=== PATIENT | female | born 1985 | race Caucasian/White ===

== ENCOUNTER → 2024-04-10 13:29 | Outpatient (REF) | payer BC, SELFPAY | LOC: PNTC 13:29 | PROVIDERS: ATTENDING PHYSICIAN Obstetrics & Gynecology | DX: O09.819 Supervision of pregnancy resulting from assisted reproductive technology, unspecified trimester (principal) | CPT/HCPCS: 76811 ==

== ENCOUNTER → 2024-05-27 08:45 | Outpatient (REF) | payer BC, SELFPAY | LOC: PNTC 08:45 | PROVIDERS: ATTENDING PHYSICIAN Obstetrics & Gynecology | DX: O09.529 Supervision of elderly multigravida, unspecified trimester (principal); O09.819 Supervision of pregnancy resulting from assisted reproductive technology, unspecified trimester | CPT/HCPCS: 76816 ==

== ENCOUNTER → 2024-07-10 10:45 | Outpatient (REF) | payer BC, SELFPAY | LOC: PNTC 10:45 | PROVIDERS: ATTENDING PHYSICIAN Obstetrics & Gynecology | DX: O09.519 Supervision of elderly primigravida, unspecified trimester (principal); O09.819 Supervision of pregnancy resulting from assisted reproductive technology, unspecified trimester | CPT/HCPCS: 76816 ==

== ENCOUNTER → 2024-07-17 11:29 | Outpatient (REF) | payer BC, SELFPAY | LOC: PNTC 11:29 | PROVIDERS: ATTENDING PHYSICIAN Obstetrics & Gynecology | DX: O09.819 Supervision of pregnancy resulting from assisted reproductive technology, unspecified trimester (principal); O09.519 Supervision of elderly primigravida, unspecified trimester | CPT/HCPCS: 59025; 76815 ==

== ENCOUNTER → 2024-07-24 11:14 | Outpatient (REF) | payer BC, SELFPAY | LOC: PNTC 11:14 | PROVIDERS: ATTENDING PHYSICIAN Obstetrics & Gynecology | DX: O09.819 Supervision of pregnancy resulting from assisted reproductive technology, unspecified trimester (principal); O09.529 Supervision of elderly multigravida, unspecified trimester | CPT/HCPCS: 76815 ==

== ENCOUNTER → 2024-07-31 10:26 | Outpatient (REF) | payer BC, SELFPAY | LOC: PNTC 10:26 | PROVIDERS: ATTENDING PHYSICIAN Obstetrics & Gynecology | DX: O09.819 Supervision of pregnancy resulting from assisted reproductive technology, unspecified trimester (principal); O09.521 Supervision of elderly multigravida, first trimester | CPT/HCPCS: 59025; 76815 ==

== ENCOUNTER → 2024-08-07 09:13 | Outpatient (REF) | payer BC, SELFPAY | LOC: PNTC 09:13 | PROVIDERS: ATTENDING PHYSICIAN Obstetrics & Gynecology | DX: O99.519 Diseases of the respiratory system complicating pregnancy, unspecified trimester (principal); O09.819 Supervision of pregnancy resulting from assisted reproductive technology, unspecified trimester | CPT/HCPCS: 59025; 76816 ==

== ENCOUNTER → 2024-08-14 11:27 | Outpatient (REF) | payer BC, SELFPAY | LOC: PNTC 11:27 | PROVIDERS: ATTENDING PHYSICIAN Obstetrics & Gynecology | DX: O09.519 Supervision of elderly primigravida, unspecified trimester (principal); O09.819 Supervision of pregnancy resulting from assisted reproductive technology, unspecified trimester | CPT/HCPCS: 59025; 76815 ==

== ENCOUNTER → 2024-08-21 09:41 | Outpatient (REF) | payer BC, SELFPAY | LOC: PNTC 09:41 | PROVIDERS: ATTENDING PHYSICIAN Obstetrics & Gynecology | DX: O09.819 Supervision of pregnancy resulting from assisted reproductive technology, unspecified trimester (principal); O09.529 Supervision of elderly multigravida, unspecified trimester | CPT/HCPCS: 59025; 76815 ==

== ENCOUNTER 2024-08-28 20:02 | Inpatient (IN) | payer BC, SELFPAY ==
[2024-08-28 20:10] VITALS: BP 102/77; BMI 29.3
[2024-08-28 21:09] LABS: % Basophils 0.4 % (0-2); % Eosinophils 1.9 % (0-6); % Immature Granulocytes 0.4 % (0-0.5); % Lymphocytes 22.7 % (20.5-51.1); % Neutrophils 64.6 % (42.2-75.2); Absolute Eosinophils 0.2 10^3/uL (0-0.7); Absolute Lymphocytes 1.9 10^3/uL (1.2-3.4); Absolute Monocytes 0.9 10^3/uL (0.1-0.6); Absolute Neutrophils 5.5 10^3/uL (1.4-6.5); Hematocrit 33.4 % (37.0-47.0); Hemoglobin 12.2 g/dL (12.0-16.0); Mean Corp Hgb Conc. 36.5 g/dL (33.0-37.0); Mean Corpuscular Hgb 31.9 pg (27.0-31.0); Mean Corpuscular Volume 87.2 fL (81.0-99.0); Mean Platelet Volume 11.2 fL (7.4-10.4); Nucleated Red Blood Cells % 0 %; Platelet Count 209 10^3/uL (130-400); Red Blood Cell Count 3.83 10^6/uL (4.20-5.40); Red Cell Dist. Width 12.8 % (11.5-14.5); White Blood Cell Count 8.6 10^3/uL (4.8-10.8)
[2024-08-28] MEDS: LR 1000 IV (21:16)
[2024-08-28] MEDS: PITOCIN 30 UNITS/NSS 500 ML IV (21:49)
[2024-08-29] MEDS: LR 1000 IV ×2 (02:02→04:00)
[2024-08-29] MEDS: FENTANYL/BUPIVACAINE 100 EPIDURAL (02:04)
[2024-08-29] MEDS: SUBLIMAZE 100 MCG EPIDURAL (02:04)
[2024-08-29] MEDS: ZOFRAN 4 MG IV (08:05)
[2024-08-29] MEDS: SYNTHROID 88 MCG PO (11:19)
[2024-08-29] MEDS: SENOKOT-S 1 TABLET PO (17:54)
[2024-08-29] MEDS: MOTRIN 600 MG PO (17:54)
[2024-08-29] MEDS: HYDROCORTISONE 2.5% OINTMENT 1 APPLIC TOPICAL (17:56)
[2024-08-30] MEDS: MOTRIN 600 MG PO ×3 (00:01→12:29)
[2024-08-30 03:43] LABS: Hematocrit 29.3 % (37.0-47.0); Hemoglobin 10.7 g/dL (12.0-16.0)
[2024-08-30] MEDS: SYNTHROID 88 MCG PO (06:15)
[2024-08-30] MEDS: SENOKOT-S 1 TABLET PO (08:21)
[2024-08-30] MEDS: PRENATAL PLUS 1 TABLET PO (08:21)
== END 2024-08-30 16:30 | disposition home or self-care (01) | DRG 807 ==
LOC: LDRP 20:02
PROVIDERS: Obstetrics & Gynecology; ADMITTING PHYSICIAN Obstetrics & Gynecology
PROC: 0KQM0ZZ Repair Perineum Muscle, Open Approach (ICD-10-PCS; 2024-08-29)
PROC: 0W8NXZZ Division of Female Perineum, External Approach (ICD-10-PCS; 2024-08-29)
PROC: 3E033VJ Introduction of Other Hormone into Peripheral Vein, Percutaneous Approach (ICD-10-PCS; 2024-08-29)
PROC: 10D07Z6 Extraction of Products of Conception, Vacuum, Via Natural or Artificial Opening (ICD-10-PCS; 2024-08-29)
DX: O70.1 Second degree perineal laceration during delivery (principal); Z37.0 Single live birth; O69.81X0 Labor and delivery complicated by cord around neck, without compression, not applicable or unspecified; Z3A.40 40 weeks gestation of pregnancy
CPT/HCPCS: 36415; 85014; 85018; 85025; 86780; 86850; 86900; 86901

== ENCOUNTER → 2025-07-02 13:11 | Outpatient (REF) | payer BC, SELFPAY | LOC: HWRAD 13:11 | PROVIDERS: ATTENDING PHYSICIAN Orthopaedic Surgery | DX: S96.121A Laceration of muscle and tendon of long extensor muscle of toe at ankle and foot level, right foot, initial encounter (principal) | CPT/HCPCS: 76882 ==

== ENCOUNTER → 2025-07-22 09:44 | Outpatient (REF) | payer BC, SELFPAY | LOC: RAD 09:44 | PROVIDERS: ATTENDING PHYSICIAN Orthopaedic Surgery | DX: S96.121A Laceration of muscle and tendon of long extensor muscle of toe at ankle and foot level, right foot, initial encounter (principal) | CPT/HCPCS: 76882 ==